=== PATIENT | male | born 2000 | race Caucasian/White ===

== ENCOUNTER → 2023-11-06 16:16 | Outpatient (CLI) | payer OTHER, SELFPAY ==
--- NOTE | 2023-11-06 16:18 | DI.RAD.S_ITS ---
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 COMPARISON: None. FINDINGS: Bones: No fractures or dislocations. Normal alignment. Mild acromioclavicular joint space narrowing. No suspicious bony lesions. Visualized ribs appear intact. Soft tissues: No suspicious soft tissue calcifications. Visualized right lung is clear. IMPRESSION: 1. No acute bony abnormality. 2. Mild acromioclavicular joint space narrowing. Dictated by: Ivan Moreno M.D. on 11/06/2023 at 16:45 Approved by: Ivan Moreno M.D. on 11/06/2023 at 16:45
== END ==
PROVIDERS: Referring Provider Student in an Organized Health Care Education/Training Program; Visit Provider Student in an Organized Health Care Education/Training Program
DX: S46.911A Strain of unspecified muscle, fascia and tendon at shoulder and upper arm level, right arm, initial encounter (principal); S43.409A Unspecified sprain of unspecified shoulder joint, initial encounter; X58.XXXA Exposure to other specified factors, initial encounter
CPT/HCPCS: 73030

== ENCOUNTER → 2024-04-10 10:15 | Outpatient (CLI) | payer OTHER, SELFPAY ==
--- NOTE | 2024-04-10 10:16 | DI.US.S_ITS ---
PROCEDURE: US EXTREMITY NONVASC LOWER RT INDICATIONS: mass medial thigh TECHNIQUE: Real-time scanning was performed of the right thigh, with image documentation. COMPARISON: None. FINDINGS: Focused ultrasound examination of medial right mid thigh at patient's reported area of palpable mass shows diffuse subcutaneous soft tissue edema and swelling. Small ill-defined hypoechoic area is seen within subcutaneous soft tissue and measures 2 x 0.8 x 0.7 cm in size. Mild peripheral vascularity is seen. No internal vascularity is seen. IMPRESSION: Ill-defined fluid collection in right medial upper thigh subcutaneous soft tissue and is concerning for early abscess collection versus phlegmon. Clinical and sonographic follow-up is recommended. No solid mass or other fluid collection is noted. Significant soft tissue edema and swelling in medial right thigh soft tissue suggestive of cellulitis peer Dictated by: Carrington Caballero M.D. on 04/10/2024 at 10:52 Approved by: Carrington Caballero M.D. on 04/10/2024 at 10:54
== END ==
PROVIDERS: PCP Family Medicine; Referring Provider Physician Assistant; Visit Provider Physician Assistant
DX: R22.41 Localized swelling, mass and lump, right lower limb (principal)
CPT/HCPCS: 76882